=== PATIENT | male | born 1965 | race Caucasian/White ===

== ENCOUNTER 2024-04-21 06:22 | Day surgery (SDC) | payer OTHER, SELFPAY ==
[2024-04-21 07:44] LABS: Glucose - Point of Care 120 mg/dl (70-99)
== END 2024-04-21 10:05 | disposition home or self-care (01) ==
LOC: GI 06:22
PROVIDERS: ATTENDING PHYSICIAN Internal Medicine Gastroenterology
DX: Z12.11 Encounter for screening for malignant neoplasm of colon (principal); K63.5 Polyp of colon; K62.1 Rectal polyp; Z85.038 Personal history of other malignant neoplasm of large intestine; Z86.0101 Personal history of adenomatous and serrated colon polyps; Z98.0 Intestinal bypass and anastomosis status
CPT/HCPCS: 45385; 88305; 82962